=== PATIENT | female | born 1995 | race Caucasian/White ===

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

== ENCOUNTER 2017-02-08 21:14 | Emergency (ER) | payer SELFPAY ==
[2017-02-08 21:21] VITALS: RESP 18; TEMP 99.1
[2017-02-08] MEDS ORDERED: ALBUTEROL/IPRATROPIUM 1 VIAL SOL INH ONE (21:52)
[2017-02-08] MEDS ORDERED: PREDNISONE 20 MG TAB PO ONE (21:52)
[2017-02-08] MEDS ORDERED: PREDNISONE 20 MG TAB ONE (21:55)
[2017-02-08] MEDS ORDERED: ALBUTEROL/IPRATROPIUM 1 VIAL SOL ONE (21:56)
[2017-02-08 22:13] VITALS: BP 118/66; PULSE 90; O2SAT 99
== END 2017-02-08 22:10 | disposition home or self-care (01) | DRG 203 ==
LOC: ED 21:14
DX: J40 Bronchitis, not specified as acute or chronic (principal); Z72.0 Tobacco use
CPT/HCPCS: 99283; J7620